=== PATIENT | female | born 1950 ===

== ENCOUNTER 2018-04-19 08:25 | Inpatient (IN) | payer OTHER ==
[~2018-04-19] VITALS: Ht 157.5 cm; Wt 59.0 kg
[2018-04-19] MEDS ORDERED: ZIOPTAN 0.00151 EACH OP (08:43)
[2018-04-19] MEDS ORDERED: CRESTOR5 MG PO (08:43)
[2018-04-20] MEDS ORDERED: CIPRO500 MG PO (10:25)
[2018-04-20] MEDS ORDERED: INTESTINEX680 M1 PO (10:26)
[2018-04-20] MEDS ORDERED: METRONIDAZOLE500 MG PO (10:26)
[2018-04-20] MEDS ORDERED: PANTOPRAZOLE SO40 MG PO (10:26)
== END 2018-04-20 10:34 | disposition home or self-care (01) | DRG 872 ==
LOC: ER 08:25 → MEDJ 19:42
PROC: BW21Y0Z Computerized Tomography (CT Scan) of Abdomen and Pelvis using Other Contrast, Unenhanced and Enhanced (ICD-10-PCS; principal; 2018-04-19)
DX: A41.9 Sepsis, unspecified organism (principal); K57.32 Diverticulitis of large intestine without perforation or abscess without bleeding